=== PATIENT | male | born 1975 ===

== ENCOUNTER 2025-08-09 07:00 | Day surgery (SDC) | payer OTHER ==
[2025-08-05 11:03] VITALS: BP 148/88
[~2025-08-09] VITALS: Ht 182.9 cm; Wt 102.5 kg
[~2025-08-09 07:00] MED LIST: AZITHROMYCIN250 MG; CLARITIN10 M1; LOSARTAN POTASS50 MG; NO TOMA MEDICAMENTOS; OSEL75CA; PRELONE15 MG/5 ML
[2025-08-09] MEDS ORDERED: METRONIDAZOLE/SODIUM CHLORIDE 500 MG/100 ML PIGGYBACK IV ONE (07:31)
[2025-08-09] MEDS ORDERED: CEFTRIAXONE SODIUM 2,000 MG VIAL ONE (07:31)
[2025-08-09] MEDS ORDERED: DIBUCAINE 30 GM TUBE ONE (09:37)
[2025-08-09] MEDS ORDERED: POVIDONE-IODINE 118 ML BOTT TOP ONE (09:37)
[2025-08-09] MEDS ORDERED: HEMOSTATIC MATRIX 1 KIT KIT TOP ONE (09:37)
[2025-08-09] MEDS ORDERED: BUPIVACAINE HCL/MPF 0.5% 30ML VIAL ONE (09:38)
[2025-08-09] MEDS ORDERED: LIDOCAINE HCL 1%/EPINEPHRINE 20ML VIAL IJ ONE (09:38)
[2025-08-09] MEDS ORDERED: TRAM1TAB98 PO (10:48)
[2025-08-09] MEDS ORDERED: COLACE100 MG PO (10:48)
[2025-08-09] MEDS ORDERED: NEURONTIN300 MG PO (10:48)
== END 2025-08-09 13:05 | disposition home or self-care (01) ==
LOC: CIR.AMB 07:00
PROVIDERS: ATTEND Surgery
DX: K64.2 Third degree hemorrhoids (principal); K64.4 Residual hemorrhoidal skin tags; K62.5 Hemorrhage of anus and rectum